=== PATIENT | male | born 1940 | race Caucasian/White ===

== ENCOUNTER 2017-07-28 09:04 | Outpatient (CLI) | payer MEDICARE, OTHER ==
[2017-07-28 11:00] LABS: Estimated GFR-MDRD - POC Greater than 90
--- NOTE | 2017-07-28 13:31 | CT ---
CT OF THE ABDOMEN AND PELVIS WITH AND WITHOUT IV CONTRAST: Indication: History of malignant neoplasm of the pancreas, status post partial resection. Comparison: 11-20-15 FINDINGS: The post-operative fluid collection seen near the pancreatic resection site has resolved. No residual soft tissue mass is evident within the pancreatic resection bed. Visualized aspects of the pancreati c body and pancreatic head appear within normal limits. No pathologically enlarged lymph nodes are evident. There is scattered vascular calcification involvi ng the abdominal and pelvic vasculature. The kidneys and adrenal glands are normal appearing. No foca l hepatic lesion is evident. There is a normal appendix in the right lower quadrant. Prostate is enlarged measuring 6.8 cm, slight ly more prominent than on a comparison in 2016. There is a moderate amount of retained stool within t he colon. There is mild degenerative scoliosis of the thoracolumbar spine. No suspicious focal or osseous lesio n is evident. IMPRESSION: 1. No evidence of recurrent or metastatic disease within the abdomen or pelvis. 2. Previously seen fluid collection involving the post-operative site of the partial pancreatectomy h as been resolved. 3. Mild amount of retained stool within the colon. 4. Worsening prostate enlargement. POS: JAMES
== END 2017-07-28 09:05 | disposition home or self-care (01) ==
LOC: CT 09:04
PROVIDERS: ATTEND Internal Medicine Hematology & Oncology
DX: C25.1 Malignant neoplasm of body of pancreas (principal); R19.5 Other fecal abnormalities; N40.0 Benign prostatic hyperplasia without lower urinary tract symptoms; Z90.411 Acquired partial absence of pancreas
CPT/HCPCS: 74177; 74178; 82565

== ENCOUNTER 2018-06-30 14:55 | Outpatient (CLI) | payer MEDICARE, OTHER ==
--- NOTE | 2018-06-30 17:22 | RAD ---
CERVICAL SPINE 4 VIEWS: Date: 06/30/18 HISTORY: Spondylosis of the cervical spine, without myelopathy. FINDINGS: No prevertebral soft tissue swelling. Cervical spine is adequately assessed from C1 through C7. Limit ed evaluation at the cervicothoracic junction. In the neutral position, there is straightening of nor mal cervical lordosis. No significant alignment upon flexion or extension. Moderate degenerative disc disease at C5-C6 and C6-C7. Mild to moderate degenerative disc disease at C4-C5. In the AP projection, there is evidence of facet hypertrophy, as well as atherosclerosis of both el[place] tid arteries. Predental space is normal. Limited evaluation of the dens on the images provided. IMPRESSION: Degenerative changes of the cervical spine as above. POS: YING
== END 2018-06-30 14:56 | disposition home or self-care (01) ==
LOC: RAD 14:55
PROVIDERS: ATTEND Specialist
DX: M47.812 Spondylosis without myelopathy or radiculopathy, cervical region (principal)
CPT/HCPCS: 72050

== ENCOUNTER 2019-01-19 04:57 | Emergency (ER) | payer MEDICARE, OTHER ==
[2019-01-19 05:36] LABS: #Basophils 0.1 thou/uL (0.0-0.2); #Eosinphils 0.3 thou/uL (0.0-0.7); #Lymphocytes 3.4 thou/uL (1.20-3.40); #Neutrophils 4.5 thou/uL (1.40-6.50); %Basophils 1.3 % (0.0-1.0); %Eosinophils 3.3 % (0.0-10.0); %Lymphocytes 36.8 % (21.0-51.0); %Monocytes 10.5 % (0.0-10.0); Hemoglobin 14.2 g/dL (14.0-18.0); Mean Corpuscular HGB CONC 32.8 g/dL (32.0-36.0); Mean Corpuscular Hemoglobin 30.9 pg (27.0-31.0); Mean Corpuscular Volume 94.4 fL (78.0-98.0); Platelet Count 260 thou/uL (130-400); RBC Distribution Width 12.2 % (11.5-14.5); Red Blood Cell (RBC) Count 4.58 mill/uL (4.70-6.10); White Blood Cell (WBC) Count 9.3 thou/uL (4.8-10.8)
[2019-01-19 05:47] LABS: Bilirubin Negative (Negative); Blood, Urine Negative (Negative); Clarity Clear (Clear); Glucose, Urine (Dipstick) 100 mg/dL (Negative); Leukocyte Negative (Negative); Nitrite Negative (Negative); Protein, Urine (Dipstick) Negative (Neg-Trace); Urobilinogen 0.2 mg/dL (0.2-1.0)
[2019-01-19 06:00] LABS: ALT (SGPT) 24 U/L (8-55); AST (SGOT) 20 U/L (5-34); Albumin 4.1 g/dL (3.4-4.8); Alkaline Phosphatase 80 U/L (40-150); Anion Gap 13 mmol/L (10-20); BUN (Urea Nitrogen) 27 mg/dL (8.4-25.7); Bilirubin, Total 0.3 mg/dL (0.2-1.2); Calc. Creatinine Clearance 0 mL/min (70-130); Calcium 9.7 mg/dL (7.8-10.44); Carbon Dioxide 22 mmol/L (23-31); Chloride 105 mmol/L (98-107); Estimated GFR-MDRD 60; Globulin 3.6 g/dL (2.4-3.5); Glucose 146 mg/dL (83-110); Lipase 34 U/L (8-78); Potassium 4.1 mmol/L (3.5-5.1); Protein, Total 7.7 g/dL (5.8-8.1); Sodium 136 mmol/L (136-145)
--- NOTE | 2019-01-19 07:44 | CT ---
PRELIMINARY REPORT/[facility]/EMERGENCY AFTER HOURS PROCEDURE: EXAM: CT Angiography Chest With Contrast EXAM DATE/TIME: 01/19/2019 6:23 AM CLINICAL HISTORY: 78 years old, male; Abdominal pain; Epigastric; Dyspnea; Chest pain; Type not specified; Surgery date : 6+ months; Surgery type: Spleen, pancreatic mass; Patient HX: 78 y/o m, with HX dmii and pancreatic CA, presents to ED C/O sudden onset of abd pain and back pain. Pain awoke PT from sleep at 0400. TECHNIQUE: Imaging protocol: Axial computed tomographic angiography images of the chest with intravenous contras t using CT angiography protocol. Coronal and sagittal reformatted images were created and reviewed. 3D rendering: MIP and 3D reconstructed images were created and reviewed. Contrast material: ISOVUE; Contrast volume: 70 ml; Contrast route: IV; COMPARISON: No relevant prior studies available. FINDINGS: Pulmonary arteries: No pulmonary emboli. Aorta: No aortic aneurysm. No aortic dissection. Lungs: Emphysematous changes without consolidation. Pleural space: No pneumothorax or pleural effusion. Heart: The heart is within normal size limits. No abdnormal pericardial effusion. Lymph nodes: Right lung calcified lymph node. Hilar calcified lymph nodes. Bones/joints: No suspicious bone lesions or fracture. Soft tissues: No acute finding. IMPRESSION: 1. No evidence of a pulmonary embolism. 2. Emphysematous changes and prior granulomatous disease. CT Abdomen and Pelvis With Contrast EXAM DATE/TIME: 01/19/2019 6:23 AM CLINICAL HISTORY: 78 years old, male; Abdominal pain; Epigastric; Dyspnea; Chest pain; Type not specified; Surgery date : 6+ months; Surgery type: Spleen, pancreatic mass; Patient HX: 78 y/o m, with HX dmii and pancreatic CA, presents to ED C/O sudden onset of abd pain and back pain. Pain awoke PT from sleep at 0400. TECHNIQUE: Imaging protocol: Axial computed tomography images of the abdomen and pelvis with intravenous contras t. Coronal and sagittal reformatted images were created and reviewed. COMPARISON: No relevant prior studies available. FINDINGS: Lungs: No consolidations. Liver: No liver masses. Gallbladder and bile ducts: Nonspecific moderate distention of the gallbladder without pericholecysti c inflammation. No ductal dilation. Pancreas: No pancreatic mass or ductal dilation. Pancreatic tail resection. Spleen: Splenectomy Adrenals: No adrenal nodules. Kidneys and ureters: No enhancing mass or hydronephrosis. Stomach and bowel: No evidence of obstruction or bowel wall thickening. Appendix: Normal appendix. Intraperitoneal space: No free air or free fluid. Retroperitoneal space: Nonspecific small nodules in the left retroperitoneum inferior to the kidney. Vasculature: Mild atherosclerosis of the aorta without aneurysm. Lymph nodes: No lymphadenopathy. Bladder: Normal. Reproductive: The prostate is enlarged 6.5 cm. Bones/joints: No suspicious bone lesions. Soft tissues: Small bilateral fat-containing inguinal hernias. IMPRESSION: 1. No acute findings in the abdomen or pelvis. 2. Nonspecific small nodules in the left retroperitoneum inferior to the kidney. Recommend comparison to prior CT not available at this time. 3. Splenectomy and pancreatic tail resection. 4. Prostatomegaly Thank you for allowing us to participate in the care of your patient. Dictated and Authenticated by: Vilma Eller MD 01/19/2019 6:59 AM Central Time (US & Loc) FINAL REPORT CTA OF THE CHEST CT ABDOMEN AND PELVIS WITH CONTRAST: COMPARISON: CT abdomen and pelvis 11/20/2015. FINDINGS/IMPRESSION: I agree with the findings and impression given in the preliminary report per [facility] physician. 1. No evidence of pulmonary thromboembolism. 2. No evidence of acute intraabdominal/pelvic abnormality. 3. There are nodules adjacent to the left kidney. These have actually decreased in size compared to the prior CT. POS: YING
--- NOTE | 2019-01-19 07:44 | RAD ---
EXAM: Single view of the chest HISTORY: Chest pain COMPARISON: 11/20/2015 FINDINGS: Single view of the chest shows a normal sized cardiomediastinal silhouette. Atheroscleroti c calcifications are seen in the aorta. There is no evidence of consolidation, mass, or pleural effusion. The bones are unremarkable. IMPRESSION: No evidence of acute cardiopulmonary disease
[2019-01-19 07:46] LABS: Troponin I 0.014 ng/mL (< 0.028)
--- NOTE | 2019-01-20 15:05 | CT ---
PRELIMINARY REPORT/[facility]/EMERGENCY AFTER HOURS PROCEDURE: EXAM: CT Angiography Chest With Contrast EXAM DATE/TIME: 01/19/2019 6:23 AM CLINICAL HISTORY: 78 years old, male; Abdominal pain; Epigastric; Dyspnea; Chest pain; Type not specified; Surgery date: 6+ months; Surgery type: Spleen, pancreatic mass; Patient HX: 78 y/o m, with HX dmii and pancreatic CA, presents to ED C/O sudden onset of abd pain and back pain. Pain awoke PT from sleep at 0400. TECHNIQUE: Imaging protocol: Axial computed tomographic angiography images of the chest with intravenous contrast using CT angiography protocol. Coronal and sagittal reformatted images were created and reviewed. 3D rendering: MIP and 3D reconstructed images were created and reviewed. Contrast material: ISOVUE; Contrast volume: 70 ml; Contrast route: IV; COMPARISON: No relevant prior studies available. FINDINGS: Pulmonary arteries: No pulmonary emboli. Aorta: No aortic aneurysm. No aortic dissection. Lungs: Emphysematous changes without consolidation. Pleural space: No pneumothorax or pleural effusion. Heart: The heart is within normal size limits. No abdnormal pericardial effusion. Lymph nodes: Right lung calcified lymph node. Hilar calcified lymph nodes. Bones/joints: No suspicious bone lesions or fracture. Soft tissues: No acute finding. IMPRESSION: 1. No evidence of a pulmonary embolism. 2. Emphysematous changes and prior granulomatous disease. CT Abdomen and Pelvis With Contrast EXAM DATE/TIME: 01/19/2019 6:23 AM CLINICAL HISTORY: 78 years old, male; Abdominal pain; Epigastric; Dyspnea; Chest pain; Type not specified; Surgery date: 6+ months; Surgery type: Spleen, pancreatic mass; Patient HX: 78 y/o m, with HX dmii and pancreatic CA, presents to ED C/O sudden onset of abd pain and back pain. Pain awoke PT from sleep at 0400. TECHNIQUE: Imaging protocol: Axial computed tomography images of the abdomen and pelvis with intravenous contrast. Coronal and sagittal reformatted images were created and reviewed. COMPARISON: No relevant prior studies available. FINDINGS: Lungs: No consolidations. Liver: No liver masses. Gallbladder and bile ducts: Nonspecific moderate distention of the gallbladder without pericholecystic inflammation. No ductal dilation. Pancreas: No pancreatic mass or ductal dilation. Pancreatic tail resection. Spleen: Splenectomy Adrenals: No adrenal nodules. Kidneys and ureters: No enhancing mass or hydronephrosis. Stomach and bowel: No evidence of obstruction or bowel wall thickening. Appendix: Normal appendix. Intraperitoneal space: No free air or free fluid. Retroperitoneal space: Nonspecific small nodules in the left retroperitoneum inferior to the kidney. Vasculature: Mild atherosclerosis of the aorta without aneurysm. Lymph nodes: No lymphadenopathy. Bladder: Normal. Reproductive: The prostate is enlarged 6.5 cm. Bones/joints: No suspicious bone lesions. Soft tissues: Small bilateral fat-containing inguinal hernias. IMPRESSION: 1. No acute findings in the abdomen or pelvis. 2. Nonspecific small nodules in the left retroperitoneum inferior to the kidney. Recommend comparison to prior CT not available at this time. 3. Splenectomy and pancreatic tail resection. 4. Prostatomegaly Thank you for allowing us to participate in the care of your patient. Dictated and Authenticated by: Vilma Eller MD 01/19/2019 6:59 AM Central Time ( T Loc) FINAL REPORT CTA OF THE CHEST CT ABDOMEN AND PELVIS WITH CONTRAST: COMPARISON: CT abdomen and pelvis 11/20/2015. FINDINGS/IMPRESSION: I agree with the findings and impression given in the preliminary report per [facility] physician. 1. No evidence of pulmonary thromboembolism. 2. No evidence of acute intraabdominal/pelvic abnormality. 3. There are nodules adjacent to the left kidney. These have actually decreased in size compared to the prior CT. Transcribed Date/Time: 01/20/2019 3:05 PM
--- NOTE | 2019-01-21 12:10 | EKG ---
Test Reason : Blood Pressure : / mmHG Vent. Rate : 069 BPM Atrial Rate : 069 BPM P-R Int : 152 ms QRS Dur : 088 ms QT Int : 388 ms P-R-T Axes : 057 001 035 degrees QTc Int : 415 ms Normal sinus rhythm Normal ECG Confirmed by ANDRZEJ CABALLERO DO ([id number]), manuscript editor SB GRACIA ([id number]) on 01/21/2019 12:10:43 PM Referred By: Confirmed By:ANDRZEJ CABALLERO DO
== END 2019-01-19 08:30 | disposition home or self-care (01) ==
LOC: ERS 04:57
DX: R10.13 Epigastric pain (principal); Z87.891 Personal history of nicotine dependence
CPT/HCPCS: 36415; 71045; 71275; 74177; 80053; 81003; 83690; 84484; 85025; 85379; 93005

== ENCOUNTER 2019-03-14 16:17 | Emergency (ER) | payer MEDICARE, OTHER ==
[~2019-03-14 16:17] MED LIST: ISOVUE-370 76%-LOCM 1 ML ONE
[2019-03-14 17:09] LABS: Hemoglobin 14.6 g/dL (14.0-18.0); Mean Corpuscular HGB CONC 32.3 g/dL (32.0-36.0); Mean Corpuscular Hemoglobin 30.4 pg (27.0-31.0); Mean Corpuscular Volume 94.2 fL (78.0-98.0); Platelet Count 247 thou/uL (130-400); RBC Distribution Width 12.2 % (11.5-14.5); Red Blood Cell (RBC) Count 4.79 mill/uL (4.70-6.10)
[2019-03-14 17:31] LABS: ALT (SGPT) 19 U/L (8-55); AST (SGOT) 14 U/L (5-34); Albumin 4.5 g/dL (3.4-4.8); Alkaline Phosphatase 78 U/L (40-150); Anion Gap 13 mmol/L (10-20); BUN (Urea Nitrogen) 27 mg/dL (8.4-25.7); Bilirubin, Total 0.4 mg/dL (0.2-1.2); Calc. Creatinine Clearance 0 mL/min (70-130); Calcium 10.5 mg/dL (7.8-10.44); Carbon Dioxide 23 mmol/L (23-31); Chloride 100 mmol/L (98-107); Estimated GFR-MDRD 66; Globulin 3.8 g/dL (2.4-3.5); Glucose 175 mg/dL (83-110); Potassium 4.1 mmol/L (3.5-5.1); Protein, Total 8.3 g/dL (5.8-8.1); Sodium 132 mmol/L (136-145)
[2019-03-14 17:33] LABS: Band 13 % (5-11); Lymphocytes 11 % (21-51); MDiff Complete? YES; Monocytes 6 % (0-10); Neutrophil 70 % (42-75); Platelet Morphology Comment Appears Adequate; RBC Morphology Normal
[2019-03-14 18:39] LABS: Bacteria/HPF None Seen HPF (None Seen); Bilirubin Negative (Negative); Blood, Urine Trace (Negative); Clarity Clear (Clear); Glucose, Urine (Dipstick) >=1000 mg/dL (Negative); Leukocyte Negative Leu/uL (Negative); Nitrite Negative (Negative); Protein, Urine (Dipstick) 10 mg/dL (Neg-Trace); Squamous Epithelial 0-3 HPF (0-3); Urobilinogen Normal mg/dL (Less than 2); WBC/HPF 0-3 HPF (0-3)
--- NOTE | 2019-03-14 18:56 | CT ---
CT ABDOMEN AND PELVIS: 03/14/2019 HISTORY: Difficulty urinating. Rectal pain. COMPARISON: 01/19/2019 TECHNIQUE: Axial CT imaging at 5 mm intervals, from the lung bases through the pubic symphysis, with IV contrast . Coronal reformatted imaging obtained. FINDINGS: The imaged lung bases demonstrate mild increased linear interstitial density. There is no free intra peritoneal air or fluid noted. The liver, gallbladder, pancreas, and adrenal glands appear grossly unremarkable. Question partial s urgical resection of the pancreas. The spleen is nonvisualized, presumably surgically absent as well . The adrenal glands and kidneys demonstrate no acute findings. The prostate gland is enlarged and heterogeneous. There is a Ni catheter within the urinary bladd er. Limited assessment of the bowel without oral contrast media demonstrates no acute findings. No evide nce for bowel obstruction or appendicitis. There is scattered atherosclerotic calcification of the infrarenal abdominal aorta. There is no lymphadenopathy appreciated within the abdomen or pelvis. Review of the osseous structures demonstrates no worrisome lytic or blastic bone lesion. There is mu ltilevel degenerative change within the spine, especially the lower lumbar spine facet joints. IMPRESSION: 1. Enlarged, heterogeneous prostate gland. 2. No evidence for free intraperitoneal air or bowel obstruction. POS: CRISTIANO
== END 2019-03-14 20:20 | disposition home or self-care (01) ==
LOC: ERS 16:17
DX: K64.4 Residual hemorrhoidal skin tags (principal); N40.0 Benign prostatic hyperplasia without lower urinary tract symptoms; R33.8 Other retention of urine; Z87.891 Personal history of nicotine dependence; Z85.46 Personal history of malignant neoplasm of prostate
CPT/HCPCS: 36415; 51702; 74177; 80053; 81003; 81015; 83605; 85025; 87040; 87086; Q9966

== ENCOUNTER 2020-08-27 15:14 | Observation (INO) | payer MEDICARE, OTHER ==
[~2020-08-27 15:14] MED LIST changes: -ISOVUE-370 76%-LOCM 1 ML ONE; +Iopamidol-370 76% 500 ML 1 ML ONE
--- NOTE | 2020-08-27 15:58 | RAD ---
XR Chest 1 View Portable HISTORY: Chest pain COMPARISON: 01/19/2019 FINDINGS: The heart size is normal. The aorta is tortuous. The lungs are well expanded without focal areas of consolidation, pneumothorax or pleural effusions. IMPRESSION: No radiographic evidence of acute cardiopulmonary process.
[2020-08-27 16:06] LABS: #Basophils 0.1 thou/uL (0.0-0.2); #Eosinphils 0.2 thou/uL (0.0-0.7); #Monocytes 0.9 thou/uL (0.11-0.59); #Neutrophils 6.7 thou/uL (1.40-6.50); %Basophils 0.8 % (0.0-1.0); %Eosinophils 1.8 % (0.0-10.0); %Lymphocytes 27.2 % (21.0-51.0); %Monocytes 8.4 % (0.0-10.0); %Neutrophils 61.8 % (42.0-75.0); Mean Corpuscular HGB CONC 33.7 g/dL (32.0-36.0); Mean Corpuscular Hemoglobin 32.7 pg (27.0-31.0); Mean Platelet Volume 8.8 fL (7.4-10.4); Platelet Count 231 thou/uL (130-400); RBC Distribution Width 12.1 % (11.5-14.5); Red Blood Cell (RBC) Count 3.97 mill/uL (4.70-6.10); White Blood Cell (WBC) Count 10.9 thou/uL (4.8-10.8)
[2020-08-27] MEDS ORDERED: Nitroglycerin 2% Ointment 1 INCH/1 GM Packet ONE (16:23)
[2020-08-27 16:26] LABS: ALT (SGPT) 22 U/L (8-55); AST (SGOT) 21 U/L (5-34); Albumin 3.7 g/dL (3.4-4.8); Alkaline Phosphatase 82 U/L (40-110); Anion Gap 10 mmol/L (10-20); BUN (Urea Nitrogen) 26 mg/dL (8.4-25.7); Bilirubin, Total 0.2 mg/dL (0.2-1.2); Calc. Creatinine Clearance 0 mL/min (70-130); Calcium 8.8 mg/dL (7.8-10.44); Carbon Dioxide 24 mmol/L (23-31); Chloride 109 mmol/L (98-107); Globulin 3.2 g/dL (2.4-3.5); Glucose 188 mg/dL (83-110); Lipase 25 U/L (8-78); Potassium 3.9 mmol/L (3.5-5.1); Protein, Total 6.9 g/dL (5.8-8.1); Sodium 139 mmol/L (136-145)
--- NOTE | 2020-08-27 17:43 | PDOC.FPRHP ---
- History of Present Illness Chief Complaint: CP History of Present Illness: Pt is an 80yo male w/ hx of pancreatic cancer and IDDM who presents with CP. CP started around 2pm today when he was lifting something heavy into the back of his truck. Pain located in center of chest and radiated straight through to his back. It was a constant, "intense pressure". No associated nausea, diaphoresis, or presyncope. Never had pain like this in the past. He went home and the pain continued so he called EMS. He was given "something for pain" by EMS and pain lessened but didn't resolve. In the ED he was given nitro and now says chest pain is resolved but is having pain with swallowing that radiated]s to his back. He took a 325mg aspirin at home before EMS arrived. ED Course: TD nitro - Allergies/Adverse Reactions Allergies Allergy/AdvReac Type Severity Reaction Status Date / Time No Known Allergies Allergy Verified 08/27/20 23:14 - Home Medications Medication Instructions Recorded Confirmed Type Glimepiride [Amaryl] 4 mg PO HS 08/27/20 08/27/20 History Insulin NPH Human Isophane 24 unit SC HS 08/27/20 08/27/20 History [NovoLIN N] Tamsulosin HCl [Flomax] 0.4 mg PO DAILY 08/27/20 08/27/20 History - History PMHx: pancreatic cancer, BPH, IDDM PSHx: resection of pancreatic cancer, splenectomy FHx: none Social: former smoker >20years, quit 5 years ago. No alcohol or drugs - Review of Systems General: denies: fever/chills, weight/appetite/sleep changes Eyes: denies: vision changes ENT: denies: nasal congestion, rhinorrhea Respiratory: denies: cough, congestion, shortness of breath Cardiovascular: reports: chest pain. denies: edema Gastrointestinal: denies: nausea, vomiting, diarrhea Genitourinary: denies: dysuria Skin: denies: rashes Musculoskeletal: denies: pain, tenderness Neurological: denies: syncope, weakness - Vital signs BP: 116/56, HR 64, T 98.5F, O2 93% on RA, RR 18, Wt 73kg - Physical Exam Constitutional: NAD, awake, alert and oriented, well developed HEENT: normocephalic and atraumatic, grossly normal vision, grossly normal hearing Neck: supple, FROM, trachea midline Chest: no-tender to palpation, no lesions Heart: RRR, normal S1/S2, no murmurs/rubs/gallops, no edema Lungs: CTAB, no respiratory distress, no wheezing Abdomen: soft, non-tender Musculoskeletal: normal structure, normal tone, ROM grossly normal Neurological: no focal deficit Skin: no rash/lesions, no jaundice Heme/Lymphatic: no unusual bruising or bleeding Psychiatric: normal mood and affect, good judgment and insight, intact recent and remote memory FMR H&P: Results - Labs Result Diagrams: 08/27/20 15:53 08/27/20 15:53 Lab results: WBC 10.9 thou/uL (4.8-10.8) H 08/27/20 15:53 Hgb 13.0 g/dL (14.0-18.0) L 08/27/20 15:53 Hct 38.5 % (42.0-52.0) L 08/27/20 15:53 MCV 97.0 fL (78.0-98.0) 08/27/20 15:53 Plt Count 231 thou/uL (130-400) 08/27/20 15:53 Neutrophils % 61.8 % (42.0-75.0) 08/27/20 15:53 Sodium 139 mmol/L (136-145) 08/27/20 15:53 Potassium 3.9 mmol/L (3.5-5.1) 08/27/20 15:53 Chloride 109 mmol/L (98-107) H 08/27/20 15:53 Carbon Dioxide 24 mmol/L (23-31) 08/27/20 15:53 BUN 26 mg/dL (8.4-25.7) H 08/27/20 15:53 Creatinine 1.05 mg/dL (0.7-1.3) 08/27/20 15:53 Glucose 188 mg/dL (83-110) H 08/27/20 15:53 Calcium 8.8 mg/dL (7.8-10.44) 08/27/20 15:53 Total Bilirubin 0.2 mg/dL (0.2-1.2) 08/27/20 15:53 AST 21 U/L (5-34) 08/27/20 15:53 ALT 22 U/L (8-55) 08/27/20 15:53 Alkaline Phosphatase 82 U/L (40-110) 08/27/20 15:53 Serum Total Protein 6.9 g/dL (5.8-8.1) 08/27/20 15:53 Albumin 3.7 g/dL (3.4-4.8) 08/27/20 15:53 Lipase 25 U/L (8-78) 08/27/20 15:53 - EKG Interpretation EKG: reviewed. RBBB, normal sinus rhythm - Radiology Interpretation Chest x-ray Status: report reviewed by me CT scan - chest Status: image reviewed by me, report reviewed by me FMR H&P: A/P - Plan #Typical Chest Pain -CP resolved after fentanyl by EMS and nitro TD in ED, currently having pain w/ swallowing -r/o ACS, other etiologies considered: GERD, esophageal spasms, MSK -ekg: RBBB, no ST changes -trop 0.01, will trend -Heart score 6 -CT aortic dissection protocol: no dissection -nuclear med stress ordered for am, NPO at midnight -will consult cardiology if results abnormal -given GI cocktail for dysphagia #IDDM -continue home meds -SSI, accuchecks ACHS #hx of pancreatic cancer -aware Code: Full PCP: Nargis IVF: SL VTE PPx: lovenox Dispo: Admit to tele obs, pending NM stress in in am, LOS <48hrs FMR H&P: Upper Level - Plan Date/Time: 08/27/20 8813 ISuri, have evaluated this patient and agree with findings/plan as outlined by dietetic intern resident. Pertinent changes/additions are listed here. 80 yo male with PMH of DM presenting to ED for chest pain. Pain started when loading heavy items into bed of truck. The pain was sharp and radiated to his back, improved w/ 25 mcg fentanyl. Nitro didnt change pain. He denies any CAD history. He now reports that pain is only located in his throat which is exacerbated with swallowing. Taken 325 ASA at home and nitro paste in ED. BP: 132/69, MAP: 90, Pulse: 75, Resp: 19, Pain: 4, O2 sat: 98 on (Room Air), PE: Gen: NAD HEENT: Moist MM Heart: RRR, no murmurs. Normal cap refill Lungs: exp wheeze at bases, No increased work of breathing. Abd: soft, nontender, BS+ Ext: no edema Typical chest pain, ACS r/o - Heart score 6, initial pain was described as typical but now sounds more esophageal since association with swallowing. Had GERD sx 1 week ago but not chronic problem. Will try GI cocktail. - CTA negative for aortic dissection - Last stress test 2013, normal - EKG with NSR, prolonged QTc, RBB, LAD, no significant ST changes - Initial trop neg, continue to trend - Plan for stress test in am Code: FULL Prophylaxis: Lovenox Diet: NPO @ [place] PCP: Nargis Attending: Vamsi Disposition: admit to telemetry for observation Addendum - Attending - Attending Attestation Date/Time: 08/27/20 9939 I personally evaluated the patient and discussed the management with Dr. Wise and Ajay I agree with the History, Examination, Assessment and Plan documented above with any addition or exceptions noted below. Chest pain while working. Resolved with EMS intervention. Remains asymptomatic here. Concerning for angina. Last stress 2013. No concerning disease at that time. Will admit and trend trop. EKG without concerns. Will discontinue nitro paste. Chemical stress in AM with imaging. If negative would follow up with PCP and cards outpatient. Also possible GI source vs MSK. Shaikh
[2020-08-27] MEDS ORDERED: Ondansetron ODT 4 MG TAB PO PRN (18:26)
[2020-08-27] MEDS ORDERED: Acetaminophen 325 MG TAB PO PRN (18:26)
[2020-08-27] MEDS ORDERED: Ondansetron PF 4 MG/2 ML Vial IVP PRN (18:26)
[2020-08-27 19:58] LABS: Troponin I 0.014 ng/mL (< 0.028)
--- NOTE | 2020-08-27 20:31 | CT ---
CT ANGIO OF CHEST AND ABDOMEN PERFORMED WITH INTRAVENOUS CONTRAST ENHANCEMENT WITH 3D RECONSTRUCTIONS : History: Chest pain. FINDINGS: The lungs show moderate emphysematous change with areas of honeycombing in the upper lobes, reticular scarring in the lung bases. No pulmonary nodules are identified. No pleural effusions. Small mediastinal lymph nodes are similar to the previous 01-19-19 exam. The pulmonary arteries opacif ication is not sufficient to exclude pulmonary embolus but I do not see any definitive central emboli . The thoracic aorta is normal in caliber. There is coronary calcifications present. There is suggest ion of some mild esophageal wall thickening, this could be on the basis of reflux. CT ANGIO OF ABDOMEN PERFORMED WITH INTRAVENOUS CONTRAST ENHANCEMENT WITH 3D RECONSTRUCTIONS: Liver appears unremarkable on this angiographic phase exam. The spleen appears to have been removed. The has also been a partial resection of the pancreas with resection of the pancreatic tail. Gallblad lucho region appears unremarkable. Right and left adrenal glands and right and left kidneys are normal in size. No obstruction. Small so ft tissue nodules inferior to the left kidney are similar in appearance to the previous 01-19-19 study . Abdominal aorta shows atherosclerotic change without aneurysm or dissection. Some mild to moderate narrowing of the origin of the celiac artery. The superior mesenteric artery is normal. There is a pa tent OLLIE present. Arthritic changes of the spine are noted. Stomach is distended with fluid. There is a moderate amount of stool present within the colon. Append ix is partially visualized and normal. IMPRESSION: 1. No evidence of aortic aneurysm or dissection. 2. Splenectomy and partial pancreatectomy. POS: [facility] [place]
[2020-08-27] MEDS ORDERED: Lidocaine 2% Viscous Solution 10 ML, Aluminum & Magnesium Hydroxide 30 ML SSW SCH (21:30)
[2020-08-27] MEDS ORDERED: Senokot 8.6 MG TAB PO SCH (21:45)
[2020-08-27 23:06] VITALS: BMI 22.0
[2020-08-27] MEDS ORDERED: HumaLOG 300 UNITS/3 ML VIAL SC PRN ×2 (23:28)
[2020-08-27] MEDS ORDERED: Dextrose 5% in Water 1,000 ML IV PRN (23:28)
[2020-08-27] MEDS ORDERED: Dextrose 50% Abboject 50 ML SYRINGE SLOW IVP PRN (23:28)
[2020-08-27 23:36] LABS: Troponin I 0.012 ng/mL (< 0.028)
[2020-08-27] MEDS ORDERED: NPH, Human Insulin Isophane 300 UNIT/3 ML VIAL SC SCH (23:45)
[2020-08-28 04:36] LABS: Hemoglobin A1c 6.1 % (4.0-6.0)
[2020-08-28 05:30] LABS: SARS-CoV-2 PCR by NAA Not Detected (NotDetected)
--- NOTE | 2020-08-28 06:55 | PDOC.FM ---
- Subjective Subjective: Mr. Ybarra is doing well this morning and has no complaints. He denies any chest pain and said it was relieved at some point last night. He wasn't sure if any specific medicine that he was given was more helpful than an other. - Objective Vital Signs & Weight: Vital Signs (12 hours) Temp Pulse Resp BP Pulse Ox 08/28/20 04:39 97.9 F 67 16 103/50 L 94 L 08/28/20 02:40 92 L 08/27/20 23:02 98.5 F 64 18 116/56 L 93 L Weight Weight 73.652 kg I&O: 08/26/20 08/27/20 08/28/20 06:59 06:59 06:59 Intake Total 480 Output Total 600 Balance -120 Result Diagrams: 08/27/20 15:53 08/27/20 15:53 EKG Reviewed by me: Yes (tele: SR 60s) Phys Exam - Physical Examination Constitutional: NAD HEENT: moist MMs, sclera anicteric Neck: full ROM Respiratory: no wheezing, no rales, no rhonchi, clear to auscultation bilateral Cardiovascular: RRR, no significant murmur Gastrointestinal: soft, non-tender Musculoskeletal: no edema, pulses present Neurological: moves all 4 limbs Psychiatric: normal affect, A&O x 3 Skin: no rash Dx/Plan - Plan Plan: Typical Chest Pain -CP resolved after fentanyl by EMS and nitro TD in ED, currently having pain w/ swallowing. s/p GI cocktail. Velasquez CP this morning. -EKG: RBBB, no ST changes. trop negx3. Heart score 6 -CT aortic dissection protocol: no dissection -Nuclear med stress this AM. Will consult cardiology if results abnormal. -If normal, discharge home on protonix as GERD is high suspicion for etiology of chest pain. IDDM -continue home meds -SSI, accuchecks ACHS Hx of pancreatic cancer -aware Code: Full PCP: Nargis IVF: SL VTE PPx: lovenox Dispo: Discharge pending results of stress test this AM
[2020-08-28] MEDS ORDERED: Enoxaparin Sodium 40 MG/0.4 ML SYRINGE SC SCH (09:00)
[2020-08-28] MEDS ORDERED: Tamsulosin HCl 0.4 MG CAP PO SCH (09:00)
[2020-08-28 11:22] VITALS: BP 123/59; TEMP 97.6
--- NOTE | 2020-08-28 11:26 | NM ---
EXAM: CARDIAC SPECT HISTORY: Chest pain, diabetes mellitus TECHNIQUE: A myocardial perfusion scan was performed using the single isotope 1 day protocol with rad hnetium 99m sestamibi. [10 mCi] was injected intravenously for the rest exam followed by 30 mCi for the stress study. Pharmacologic stress with adenosine was monitored and interpreted by Dr. Stevens FINDINGS: Homogeneous tracer distribution is seen in the myocardial segments on stress and rest image s without fixed or reversible defects. Gated SPECT LVEF: 69% Wall motion exam: Normal IMPRESSION: Normal myocardial perfusion scan
[2020-08-28] MEDS ORDERED: ADENOSINE 60 MG/20 ML VIAL ONE (13:16)
[2020-08-28] MEDS ORDERED: Glimepiride 4 MG TAB PO SCH (17:00)
[2020-08-28] MEDS ORDERED: NPH, Human Insulin Isophane 300 UNIT/3 ML VIAL SC SCH ×2 (21:00)
--- NOTE | 2020-08-28 21:18 | DIS ---
DATE OF ADMISSION: 08/27/2020 DATE OF DISCHARGE: 08/28/2020 RESIDENT: Abel Schwarz MD ADMITTING ATTENDING: Roxane Agustin MD DISCHARGE ATTENDING: Silver Andrews MD CONSULTS: None. PROCEDURES: Chest x-ray on August 27 showed no acute cardiopulmonary process. CT dissection protocol on August 27 showed no evidence of aortic aneurysm or dissection. Nuclear stress test on August 28, which was normal. PRIMARY DIAGNOSIS: Typical chest pain secondary to GERD versus musculoskeletal chest pain. SECONDARY DIAGNOSES: Diabetes and history of pancreatic cancer. DISCHARGE MEDICATIONS: 1. Tamsulosin 0.4 mg p.o. daily. 2. Glimepiride 4 mg p.o. 3. Novolin 24 units subcu. 4. Protonix 40 mg p.o. daily. DISCONTINUED MEDICATIONS: None. HISTORY OF PRESENT ILLNESS AND BRIEF HOSPITAL COURSE: Mr. Ybarra is an 80-year-old male with history of pancreatic cancer and diabetes, presenting with chest pain that started around 2 p.m. on day of admission. He was lifting something heavy in the back of his truck. Pain is located in the center of his chest and radiating straight through to his back. It was constant, intense pressure. No associated nausea, diaphoresis, or presyncope. He has never had pain like this in the past. The patient went home and pain continues, so he called EMS. The patient was getting something for pain by EMS and the pain lasts, but did not resolve. In the ED, he was given nitroglycerin and also his chest pain has resolved, but he is having pain with swallowing that radiates to his back. The patient reportedly took a 325 mg aspirin at home before EMS arrived. The patient's EKG showed a right bundle-branch block with no ST changes. Troponins were negative x3. The patient had a HEART score of 6 and was admitted. The patient also had a CT, which showed no evidence of an aortic dissection. Nuclear stress test was performed, which was normal. The patient was discharged home on Protonix with GERD versus MSK chest pain, has high suspicion for etiology of pain. DISPOSITION: Stable. DISCHARGE INSTRUCTIONS: 1. Location: Home. 2. Diet: Carb controlled. 3. Activity: As tolerated. 4. Followup: Follow up with PCP, Dr. Barillas, this week. Job ID: [id number]
--- NOTE | 2020-09-01 16:15 | EKG ---
Test Reason : EMERGENCY EXAM Blood Pressure : / mmHG Vent. Rate : 086 BPM Atrial Rate : 086 BPM P-R Int : 162 ms QRS Dur : 142 ms QT Int : 424 ms P-R-T Axes : 044 -42 020 degrees QTc Int : 507 ms Normal sinus rhythm Possible Left atrial enlargement Left axis deviation Right bundle branch block Abnormal ECG Confirmed by JACKIE CONTE DO ([id number]), editor city [place] ([id number]) on 09/01/2020 4:15:42 PM Referred By: Confirmed By:JACKIE CONTE DO
== END 2020-08-28 13:49 | disposition home or self-care (01) ==
LOC: ERS 15:14 → ERHOLD 17:46 → 2NO 22:51
PROVIDERS: ADMIT Student in an Organized Health Care Education/Training Program; ATTEND Student in an Organized Health Care Education/Training Program
DX: R07.89 Other chest pain (principal); E11.9 Type 2 diabetes mellitus without complications; N40.0 Benign prostatic hyperplasia without lower urinary tract symptoms; I45.10 Unspecified right bundle-branch block; Z85.07 Personal history of malignant neoplasm of pancreas; Z87.891 Personal history of nicotine dependence; Z79.4 Long term (current) use of insulin; Z79.899 Other long term (current) drug therapy; Z90.411 Acquired partial absence of pancreas; Z90.81 Acquired absence of spleen; Z20.822 Contact with and (suspected) exposure to COVID-19
CPT/HCPCS: 71045; 71275; 74174; 78452; 80053; 80061; 82962 ×2; 83036; 83690; 84443; 84484 ×2; 85025; 93005; 93017; 94760; 99285; A9500; U0003; U0005; 36415; 36416; 87635; G0378; J0153; J1815; Q9967

== ENCOUNTER 2021-08-13 12:44 | Inpatient (IN) | payer MEDICARE, OTHER ==
[2021-08-13] MEDS ORDERED: Heparin 10,000 UNITS/ 10 ML VIAL ONE (13:29)
[2021-08-13 14:17] LABS: INR-International Normal Ratio 1.1
[2021-08-13 14:18] LABS: PTT 27.6 sec (22.9-36.1)
[2021-08-13 14:39] LABS: #Eosinphils 0.1 thou/uL (0.0-0.7); #Lymphocytes 1.7 thou/uL (1.20-3.40); #Neutrophils 10.9 thou/uL (1.40-6.50); %Eosinophils 0.5 % (0.0-10.0); %Lymphocytes 12.7 % (21.0-51.0); %Neutrophils 79.8 % (42.0-75.0); Hemoglobin 13.7 g/dL (14.0-18.0); MDiff Complete? YES; Mean Corpuscular Hemoglobin 31.4 pg (27.0-31.0); Mean Corpuscular Volume 95.1 fL (78.0-98.0); Mean Platelet Volume 8.8 fL (7.4-10.4); Platelet Count 335 thou/uL (130-400); Platelet Morphology Comment Appears Adequate; Polychromasia SLIGHT = 2-3 cells (100X) (0-2/hpf); RBC Distribution Width 11.4 % (11.5-14.5); Red Blood Cell (RBC) Count 4.37 mill/uL (4.70-6.10); White Blood Cell (WBC) Count 13.6 thou/uL (4.8-10.8)
[2021-08-13 14:44] LABS: CKMB 3.7 ng/mL (0-6.6)
[2021-08-13] MEDS ORDERED: Ondansetron ODT 4 MG TAB PO PRN (16:07)
[2021-08-13] MEDS ORDERED: Heparin 25,000 units/D5W 500 ML IVPB SCH (16:15)
[2021-08-13] MEDS ORDERED: Heparin 10,000 UNITS/ 10 ML VIAL SLOW IVP SCH (16:15)
[2021-08-13] MEDS ORDERED: HumaLOG 300 UNITS/3 ML VIAL SC PRN ×2 (16:26)
[2021-08-13] MEDS ORDERED: Dextrose 5% in Water 1,000 ML IV PRN (16:26)
[2021-08-13] MEDS ORDERED: Dextrose 50% Abboject 50 ML SYRINGE SLOW IVP PRN (16:26)
[2021-08-13 16:43] LABS: Hemoglobin 13.2 g/dL (14.0-18.0); Platelet Count 371 thou/uL (130-400)
[2021-08-13 17:21] LABS: Troponin I 0.922 ng/mL (< 0.028)
[2021-08-13 17:27] LABS: ALT (SGPT) 28 U/L (8-55); AST (SGOT) 25 U/L (5-34); Albumin 3.2 g/dL (3.4-4.8); Alkaline Phosphatase 66 U/L (40-110); Anion Gap 15 mmol/L (10-20); BUN (Urea Nitrogen) 29 mg/dL (8.4-25.7); Bilirubin, Total 0.5 mg/dL (0.2-1.2); Calc. Creatinine Clearance 0 mL/min (70-130); Calcium 9.4 mg/dL (7.8-10.44); Carbon Dioxide 21 mmol/L (23-31); Chloride 103 mmol/L (98-107); Globulin 3.6 g/dL (2.4-3.5); Glucose 124 mg/dL (83-110); Potassium 3.8 mmol/L (3.5-5.1); Protein, Total 6.8 g/dL (5.8-8.1); Sodium 135 mmol/L (136-145)
[2021-08-13 18:00] LABS: Hemoglobin A1c 8.9 % (4.0-6.0)
[2021-08-13 18:09] LABS: Cardiac Risk 5.3 (Less than 4.5)
[2021-08-13 18:39] LABS: SARS-CoV-2 NAA Rapid Test DETECTED (NotDetected)
[2021-08-13] MEDS: Lactated Ringer's 1,000 ML IV SCH (19:10)
[2021-08-13 20:02] LABS: Troponin I 1.203 ng/mL (< 0.028)
[2021-08-13] MEDS ORDERED: Enoxaparin Sodium 80 MG/0.8 ML SYRINGE ONE (20:04)
[2021-08-13] MEDS ORDERED: Enoxaparin Sodium 80 MG/0.8 ML SYRINGE SC SCH (21:00)
[2021-08-13] MEDS: Glimepiride 4 MG TAB PO SCH (21:00)
[2021-08-13] MEDS ORDERED: NPH, Human Insulin Isophane 300 UNIT/3 ML VIAL SC SCH (21:00)
[2021-08-13 21:15] VITALS: BMI 19.3
[2021-08-14] MEDS: Lactated Ringer's 1,000 ML IV SCH ×3 (04:15→19:00)
[2021-08-14 06:41] LABS: #Eosinphils 0.2 thou/uL (0.0-0.7); #Lymphocytes 1.5 thou/uL (1.20-3.40); #Monocytes 0.8 thou/uL (0.11-0.59); #Neutrophils 5.9 thou/uL (1.40-6.50); %Basophils 0.1 % (0.0-1.0); %Lymphocytes 17.9 % (21.0-51.0); %Monocytes 9.7 % (0.0-10.0); %Neutrophils 70.3 % (42.0-75.0); Hemoglobin 13.7 g/dL (14.0-18.0); Mean Corpuscular Hemoglobin 32.3 pg (27.0-31.0); Mean Corpuscular Volume 94.9 fL (78.0-98.0); Mean Platelet Volume 8.6 fL (7.4-10.4); Platelet Count 346 thou/uL (130-400); RBC Distribution Width 11.6 % (11.5-14.5); Red Blood Cell (RBC) Count 4.23 mill/uL (4.70-6.10); White Blood Cell (WBC) Count 8.5 thou/uL (4.8-10.8)
[2021-08-14 06:53] LABS: ALT (SGPT) 28 U/L (8-55); AST (SGOT) 32 U/L (5-34); Albumin 3.2 g/dL (3.4-4.8); Alkaline Phosphatase 63 U/L (40-110); Anion Gap 14 mmol/L (10-20); BUN (Urea Nitrogen) 27 mg/dL (8.4-25.7); Bilirubin, Total 0.7 mg/dL (0.2-1.2); Calc. Creatinine Clearance 59 mL/min (70-130); Calcium 9.3 mg/dL (7.8-10.44); Carbon Dioxide 19 mmol/L (23-31); Chloride 104 mmol/L (98-107); Globulin 3.7 g/dL (2.4-3.5); Glucose 113 mg/dL (83-110); Potassium 3.9 mmol/L (3.5-5.1); Protein, Total 6.9 g/dL (5.8-8.1); Sodium 133 mmol/L (136-145)
[2021-08-14] MEDS ORDERED: FLU VACC QS2021-22(65YR UP)/PF 240 MCG/0.7 ML SYRINGE IM ONE (09:00)
[2021-08-14] MEDS: Tamsulosin HCl 0.4 MG CAP PO SCH (09:05)
[2021-08-14] MEDS: Enoxaparin Sodium 80 MG/0.8 ML SYRINGE SC SCH ×2 (09:05→22:00)
[2021-08-14] MEDS ORDERED: Aspirin 325 mg Enteric Coated Tablet PO SCH (10:30)
[2021-08-14] MEDS ORDERED: Acetaminophen 500 MG TAB PO PRN (13:51)
[2021-08-14] MEDS ORDERED: Acetaminophen 325 MG TAB PO PRN (13:51)
[2021-08-14] MEDS: Glimepiride 4 MG TAB PO SCH (22:21)
[2021-08-15 06:13] LABS: #Eosinphils 0.2 thou/uL (0.0-0.7); #Lymphocytes 3.1 thou/uL (1.20-3.40); #Monocytes 0.8 thou/uL (0.11-0.59); #Neutrophils 4.9 thou/uL (1.40-6.50); %Basophils 0.4 % (0.0-1.0); %Eosinophils 2.6 % (0.0-10.0); %Monocytes 9.3 % (0.0-10.0); %Neutrophils 53.8 % (42.0-75.0); Hemoglobin 13.3 g/dL (14.0-18.0); Mean Corpuscular HGB CONC 32.4 g/dL (32.0-36.0); Mean Corpuscular Hemoglobin 31.4 pg (27.0-31.0); Mean Corpuscular Volume 96.9 fL (78.0-98.0); Mean Platelet Volume 9.1 fL (7.4-10.4); Platelet Count 360 thou/uL (130-400); RBC Distribution Width 11.8 % (11.5-14.5); Red Blood Cell (RBC) Count 4.25 mill/uL (4.70-6.10); White Blood Cell (WBC) Count 9.1 thou/uL (4.8-10.8)
[2021-08-15] MEDS: Lactated Ringer's 1,000 ML IV SCH (06:16)
[2021-08-15 06:18] LABS: Anion Gap 15 mmol/L (10-20); BUN (Urea Nitrogen) 22 mg/dL (8.4-25.7); Calc. Creatinine Clearance 61 mL/min (70-130); Calcium 9.4 mg/dL (7.8-10.44); Carbon Dioxide 20 mmol/L (23-31); Chloride 105 mmol/L (98-107); Potassium 3.2 mmol/L (3.5-5.1); Sodium 137 mmol/L (136-145)
[2021-08-15 06:21] LABS: Glucose 38 mg/dL (83-110)
[2021-08-15 06:30] LABS: Critical Call Chem Troponin I RESULT DECREASING
[2021-08-15] MEDS ORDERED: Potassium Chloride 20 MEQ TAB PO SCH (09:00)
[2021-08-15] MEDS ORDERED: Aspirin 325 mg Enteric Coated Tablet PO SCH (09:00)
[2021-08-15] MEDS ORDERED: Enoxaparin Sodium 40 MG/0.4 ML SYRINGE SC SCH (09:00)
[2021-08-15] MEDS: Tamsulosin HCl 0.4 MG CAP PO SCH (09:27)
[2021-08-15] MEDS: Aspirin 325 mg Enteric Coated Tablet PO SCH (09:27)
[2021-08-15 09:38] LABS: Phosphorus 2.9 mg/dL (2.3-4.7)
[2021-08-15 09:39] LABS: Magnesium 2.2 mg/dL (1.6-2.6)
[2021-08-15] MEDS ORDERED: Communication Order-Pharmacy FS SCH (17:45)
[2021-08-15] MEDS ORDERED: NPH, Human Insulin Isophane 300 UNIT/3 ML VIAL SC SCH (21:00)
[2021-08-16] MEDS ORDERED: Sodium Chloride 0.9% 1,000 ML IV SCH (06:00)
[2021-08-16] MEDS: Tamsulosin HCl 0.4 MG CAP PO SCH (06:53)
[2021-08-16] MEDS: Aspirin 325 mg Enteric Coated Tablet PO SCH (06:53)
[2021-08-16] MEDS ORDERED: Fentanyl 100 MCG/2 ML VIAL ONE (07:09)
[2021-08-16] MEDS ORDERED: Nitroglycerin 100MG/250ML BOT 250 ML ONE (07:24)
[2021-08-16] MEDS ORDERED: Nitroglycerin 0.4 MG TAB (25 Tab Bottle) SL PRN (07:58)
[2021-08-16] MEDS ORDERED: Sodium Chloride 0.9% 200 ML IV PRN (07:58)
[2021-08-16] MEDS ORDERED: Clopidogrel Bisulfate 75 MG TAB PO SCH (09:00)
[2021-08-16 10:13] LABS: #Eosinphils 0.3 thou/uL (0.0-0.7); #Lymphocytes 2.1 thou/uL (1.20-3.40); #Monocytes 0.8 thou/uL (0.11-0.59); #Neutrophils 4.6 thou/uL (1.40-6.50); %Basophils 0.2 % (0.0-1.0); %Eosinophils 3.3 % (0.0-10.0); %Lymphocytes 26.7 % (21.0-51.0); %Monocytes 9.9 % (0.0-10.0); %Neutrophils 59.8 % (42.0-75.0); Hemoglobin 13.3 g/dL (14.0-18.0); Mean Corpuscular HGB CONC 32.8 g/dL (32.0-36.0); Mean Corpuscular Hemoglobin 31.9 pg (27.0-31.0); Mean Corpuscular Volume 97.1 fL (78.0-98.0); Mean Platelet Volume 8.4 fL (7.4-10.4); Platelet Count 412 thou/uL (130-400); RBC Distribution Width 11.7 % (11.5-14.5); Red Blood Cell (RBC) Count 4.18 mill/uL (4.70-6.10); White Blood Cell (WBC) Count 7.7 thou/uL (4.8-10.8)
[2021-08-16 10:19] LABS: Anion Gap 12 mmol/L (10-20); BUN (Urea Nitrogen) 15 mg/dL (8.4-25.7); Calc. Creatinine Clearance 56 mL/min (70-130); Calcium 9.2 mg/dL (7.8-10.44); Carbon Dioxide 24 mmol/L (23-31); Chloride 105 mmol/L (98-107); Glucose 145 mg/dL (83-110); Potassium 4.5 mmol/L (3.5-5.1); Sodium 136 mmol/L (136-145)
[2021-08-16 10:39] LABS: Troponin I 0.799 ng/mL (< 0.028)
[2021-08-16 11:49] VITALS: BP 123/60; TEMP 97.8
[2021-08-16] MEDS ORDERED: Clopidogrel Bisulfate 300 MG TAB PO SCH (12:30)
[2021-08-16] MEDS ORDERED: Potassium Chloride 20 MEQ TAB PO SCH (12:30)
[2021-08-16] MEDS ORDERED: Iopamidol 370 76% 100 ML VIAL ONE (15:45)
[2021-08-16] MEDS ORDERED: Rosuvastatin 20 MG TAB PO SCH (21:00)
[2021-08-17] MEDS ORDERED: Aspirin 81 mg Enteric Coated Tablet PO SCH (09:00)
[2021-08-17] MEDS ORDERED: Clopidogrel Bisulfate 75 MG TAB PO SCH (09:00)
== END 2021-08-16 14:15 | disposition home or self-care (01) | DRG 280 ==
LOC: ERS 12:44 → ERHOLD 15:26 → 2SE 21:39
PROVIDERS: ADMIT Family Medicine; ATTEND Family Medicine
PROC: 8E0ZXY6 Isolation (ICD-10-PCS; 2021-08-13)
PROC: 4A023N7 Measurement of Cardiac Sampling and Pressure, Left Heart, Percutaneous Approach (ICD-10-PCS; principal; 2021-08-16)
PROC: B2111ZZ Fluoroscopy of Multiple Coronary Arteries using Low Osmolar Contrast (ICD-10-PCS; 2021-08-16)
DX: I21.4 Non-ST elevation (NSTEMI) myocardial infarction (principal); U07.1 COVID-19; J12.82 Pneumonia due to coronavirus disease 2019; I45.10 Unspecified right bundle-branch block; N40.0 Benign prostatic hyperplasia without lower urinary tract symptoms; E11.649 Type 2 diabetes mellitus with hypoglycemia without coma; K21.9 Gastro-esophageal reflux disease without esophagitis; Z85.46 Personal history of malignant neoplasm of prostate; Z79.899 Other long term (current) drug therapy; Z79.84 Long term (current) use of oral hypoglycemic drugs; Z79.4 Long term (current) use of insulin; Z79.82 Long term (current) use of aspirin; Z79.02 Long term (current) use of antithrombotics/antiplatelets; Z85.07 Personal history of malignant neoplasm of pancreas; Z90.81 Acquired absence of spleen; Z90.410 Acquired total absence of pancreas; Z87.891 Personal history of nicotine dependence; Z82.49 Family history of ischemic heart disease and other diseases of the circulatory system
CPT/HCPCS: 36415; 36416; 71045; 80048; 80053; 80061; 82553; 83036; 83735; 83880; 84100; 84484; 85025; 85610; 85730; 93005; 93306; 93458; 94760; 97139; J1610; J1644; J1650; J1815; J3010; J7050; J7120; Q9967; U0002

== ENCOUNTER 2021-09-30 08:46 | Outpatient (CLI) | payer MEDICARE, OTHER | END 2021-09-30 08:47 | disposition home or self-care (01) | LOC: CT 08:46 | PROVIDERS: ATTEND Internal Medicine Hematology & Oncology | DX: C25.1 Malignant neoplasm of body of pancreas (principal); Z90.49 Acquired absence of other specified parts of digestive tract; N40.0 Benign prostatic hyperplasia without lower urinary tract symptoms; K59.00 Constipation, unspecified; N43.3 Hydrocele, unspecified | CPT/HCPCS: 74177 ==

== ENCOUNTER 2024-01-20 12:18 | Outpatient (CLI) | payer MEDICARE, OTHER | END 2024-01-20 12:19 | disposition home or self-care (01) | LOC: BICCT 12:18 | PROVIDERS: ATTEND Family Medicine | DX: Z12.2 Encounter for screening for malignant neoplasm of respiratory organs (principal); Z87.891 Personal history of nicotine dependence | CPT/HCPCS: 71271 ==